=== PATIENT | male | born 1960 | race Hispanic/Latino ===

== ENCOUNTER 2020-08-21 15:11 | Emergency (ER) | payer SELFPAY ==
[~2020-08-21] VITALS: Ht 165.1 cm; Wt 83.6 kg
[~2020-08-21 15:11] MED LIST: ASPIRIN EC81 MG; CARVEDILOL6.25 MG PO; LISINOPRIL20 MG PO; MUCINEX600 MG PO; NO HOME MEDS; NO HOME MEDS PER PT; PLAVIX75 MG PO; SIMVASTATIN40 MG PO; ZITHROMAX250 MG PO
[2020-08-21 16:18] LABS: HEMOGLOBIN 14.4 g/dl (14.0-18.0); IMMATURE GRANULOCYTES 0.2 % (0.0-5.0); MEAN CELL VOLUME 88.5 fL CALC (80.0-100.0); MEAN CORPUSCULAR HGB 29.6 pG CALC (26.0-32.0); MEAN CORPUSCULAR HGB CONC 33.5 g/dL CAL (32.0-36.0); NEUT# 3.53 thou/uL (1.82-7.42); RED BLOOD COUNT 4.86 mill/uL (4.70-6.10); RED CELL DISTRI WIDTH 12.2 % (11.5-15.5)
[2020-08-21 16:19] LABS: URINE BILIRUBIN - DIPSTICK NEGATIVE (NEGATIVE); URINE BLOOD DIPSTICK NEGATIVE (NEGATIVE); URINE COLOR YELLOW; URINE GLUCOSE - DIPSTICK >=1000 mg/dL (NEGATIVE); URINE KETONE NEGATIVE (NEGATIVE); URINE LEUK ESTERASE NEGATIVE (NEGATIVE); URINE NITRITE - DIPSTICK NEGATIVE (Negative); URINE PROTEIN - DIPSTICK NEGATIVE (NEG-TRACE); URINE UROBILINOGEN - DIPSTICK 0.2 E.U./dL (0.2)
[2020-08-21 16:49] LABS: ALBUMIN 4.1 g/dL (3.2-5.0); ALKALINE PHOSPHATASE 83 u/l (38-126); ANION GAP 14 (6-22 (CALC)); BILIRUBIN, TOTAL 0.5 mg/dL (0.0-1.4); BUN 10 mg/dL (8-23); BUN/CREATININE RATIO 15 (12-20 (CALC)); CARBON DIOXIDE 24 mmol/l (22-30); CHLORIDE 101 mmol/l (95-108); CREATININE 0.7 mg/dL (0.7-1.3); GFR > 60 ML/MIN (>=60 (CALC)); GFR FOR AFR.AMER. > 60 ML/MIN (>=60 (CALC)); POTASSIUM 4.3 mmol/l (3.5-5.1); SGOT/AST 28 u/l (19-48); SODIUM 134 mmol/l (137-146); TOTAL PROTEIN 7.2 g/dL (6.3-8.2)
[2020-08-21] MEDS ORDERED: VALTREX1 GM PO (17:07)
[2020-08-21] MEDS ORDERED: MEDDOSEPAK PO (17:07)
[2020-08-21] MEDS ORDERED: [UNRECOGNIZED DRUG - OTHER] OS (17:14)
[2020-08-21 17:40] VITALS: BP 126/55
== END 2020-08-21 17:40 | disposition home or self-care (01) | DRG 74 ==
LOC: ED 15:11
PROVIDERS: Emergency Medicine
DX: G51.0 Bell's palsy (principal); E11.9 Type 2 diabetes mellitus without complications; I10 Essential (primary) hypertension; Z95.5 Presence of coronary angioplasty implant and graft

== ENCOUNTER 2023-09-08 17:46 | Emergency (ER) | payer SELFPAY ==
[~2023-09-08] VITALS: Ht 165.1 cm; Wt 83.4 kg
[2023-09-08] VITALS (14 sets, daily range): BP systolic 134–150; BP diastolic 63–78
[~2023-09-08 17:46] MED LIST changes: +MEDDOSEPAK PO; +VALTREX1 GM PO; +[UNRECOGNIZED DRUG - OTHER] OS
[2023-09-08 19:31] LABS: BASO% 0.9 % (0-3); HEMATOCRIT 41.6 % (39.0-50.0); HEMOGLOBIN 13.9 g/dl (14.0-18.0); LYMPH% 33.4 % (15-41); MEAN CORPUSCULAR HGB 30.1 pG CALC (26.0-32.0); MEAN CORPUSCULAR HGB CONC 33.4 g/dL CAL (32.0-36.0); MONO% 11.1 % (2-13); NEUT# 2.94 thou/uL (1.82-7.42); NEUT% 51.6 % (42-76); RED BLOOD COUNT 4.62 mill/uL (4.70-6.10); RED CELL DISTRI WIDTH 12.1 % (11.5-15.5)
[2023-09-08 19:38] LABS: ALBUMIN 4.2 g/dL (3.2-5.0); ALKALINE PHOSPHATASE 84 u/l (38-126); BILIRUBIN, TOTAL 0.3 mg/dL (0.2-1.3); BUN 14 mg/dL (8-23); BUN/CREATININE RATIO 20 (12-20 (CALC)); CARBON DIOXIDE 26 mmol/l (22-30); CREATININE 0.7 mg/dL (0.7-1.3); GFR FOR AFR.AMER. > 60 ML/MIN (>=60 (CALC)); GFR OTHER RACES > 60 ML/MIN (>=60 (CALC)); POTASSIUM 4.2 mmol/l (3.5-5.1); SGOT/AST 28 u/l (19-48); SODIUM 134 mmol/l (137-146); TOTAL PROTEIN 7.1 g/dL (6.3-8.2)
[2023-09-08 19:40] LABS: ANION GAP 12 (6-22 (CALC)); CHLORIDE 100 mmol/l (95-108)
== END 2023-09-08 21:14 | disposition home or self-care (01) | DRG 103 ==
LOC: ED 17:46
PROVIDERS: Family Medicine
DX: R51.9 Headache, unspecified (principal); I10 Essential (primary) hypertension; E11.9 Type 2 diabetes mellitus without complications; I25.10 Atherosclerotic heart disease of native coronary artery without angina pectoris

== ENCOUNTER 2023-09-21 08:59 | Emergency (ER) | payer SELFPAY ==
[~2023-09-21] VITALS: Ht 165.1 cm; Wt 82.1 kg
[2023-09-21 09:07] VITALS: BP 156/65
[2023-09-21] MEDS ORDERED: VALACYCLOVIR HYD1 GM PO (09:19)
[2023-09-21] MEDS ORDERED: DOXY-CAPS100 MG PO (09:19)
[2023-09-21] MEDS ORDERED: NAPROXEN500 MG PO (09:19)
[2023-09-21 09:26] VITALS: BP 154/79
== END 2023-09-21 09:52 | disposition home or self-care (01) | DRG 596 ==
LOC: ED 08:59
DX: B02.9 Zoster without complications (principal); E11.9 Type 2 diabetes mellitus without complications; I10 Essential (primary) hypertension